=== PATIENT | male | born 1970 | race Caucasian/White ===

== ENCOUNTER 2020-09-25 16:56 | Emergency (ER) | payer SELFPAY ==
[~2020-09-25] VITALS: Ht 170.2 cm; Wt 89.4 kg
[2020-09-25 17:33] VITALS: BP 143/93
[2020-09-25] MEDS ORDERED: predniSONE 20 MG TAB PO ONE (17:35)
[2020-09-25] MEDS ORDERED: ACYCLOVIR 200 MG CAP PO ONE (17:35)
[2020-09-25] MEDS ORDERED: ACETAMINOPHEN EXTRA STRENGTH 500 MG TAB PO ONE (17:35)
--- NOTE | 2020-09-25 17:39 | NUR ---
Pt presents to ED for right sided facial droop. Last known well last night around 1999. Pt reports right ear discomfort and right eye swelling. Pt denies any pain describes it as numbness. Pain level 0/10. Pt awake and alert. Pt A&Ox4. GCS 15. Able to ambulate with steady gait. Pt has strong push/pull breakdown person to bilateral upper and lower extremities. No weakness noted. MD Vickers made aware. MD at chairside.
--- NOTE | 2020-09-25 18:02 | NUR ---
Patient taken to CT scan via wheelchair by tech.
--- NOTE | 2020-09-25 18:08 | NUR ---
PT RETURNED TO BED [address] VIA W/C
[2020-09-25] MEDS ORDERED: NAPR-54 PO (18:27)
[2020-09-25] MEDS ORDERED: PRED10TA5 PO (18:27)
[2020-09-25] MEDS ORDERED: ACYC400T14 PO (18:27)
[2020-09-25 18:40] VITALS: BP 135/82
--- NOTE | 2020-09-25 18:40 | NUR ---
Patient discharged with v/s stable. Written and verbal after care instructions given and explained. Patient alert, oriented and verbalized understanding of instructions. Ambulatory with steady gait. All questions addressed prior to discharge. ID band removed. Patient advised to follow up with PMD. Rx of ACYCLOVIR 400 MG PO DAILY, NAPROXEN 500 MG PO TID PRN FOR PAIN, PREDNISONE 40 MG PO DAILY given. Patient educated on indication of medication including possible reaction and side effects. Opportunity to ask questions provided and answered.
== END 2020-09-25 18:39 | disposition home or self-care (01) ==
LOC: MED 16:56
DX: G51.0 Bell's palsy (principal); Z79.899 Other long term (current) drug therapy
CPT/HCPCS: 70450; 99284; J7512